=== PATIENT | male | born 1975 | race Caucasian/White ===

== ENCOUNTER 2016-06-14 06:03 | Day surgery (SDC) | payer MEDICARE, MEDICAID ==
[~2016-06-14] VITALS: Ht 172.7 cm; Wt 120.0 kg
[2016-06-14] MEDS ORDERED: SODIUM CHLORIDE 0.9% 1,000 ML IV SCH (07:32)
[2016-06-14 07:33] VITALS: BP 110/70
[2016-06-14] MEDS ORDERED: SEVE800T PO (07:37)
[2016-06-14] MEDS ORDERED: METO50TA82 PO (07:37)
[2016-06-14] MEDS ORDERED: PRED10TA PO (07:37)
[2016-06-14] MEDS ORDERED: SODI325T PO (07:37)
[2016-06-14] MEDS ORDERED: AMLO10TA2 PO (07:37)
[2016-06-14] MEDS ORDERED: LANT500T PO (07:37)
[2016-06-14 08:06] LABS: HEMOGLOBIN 14.8 g/dL (13.7-18.0)
[2016-06-14 08:11] LABS: BLOOD UREA NITROGEN 32 mg/dL (7-18)
[2016-06-14] MEDS ORDERED: PROTAMINE SULFATE 10 MG/ML, 25ML ONE (08:17)
[2016-06-14] MEDS ORDERED: NALOXONE 1 MG/ML, 2ML ONE (08:17)
[2016-06-14] MEDS ORDERED: FLUMAZENIL 0.1 MG/1 ML, 5ML ONE (08:17)
[2016-06-14] MEDS ORDERED: MIDAZOLAM 1 MG/ML, 5ML ONE (08:17)
[2016-06-14] MEDS ORDERED: FENTANYL PF 100 MCG/2ML ONE (08:17)
[2016-06-14] MEDS ORDERED: LIDOCAINE 2%, 20ML ONE (08:21)
[2016-06-14 08:55] LABS: ANISOCYTOSIS 1+
[2016-06-14 09:00] LABS: POLYCHROMASIA 1+
[2016-06-14] MEDS ORDERED: VISIPAQUE 270 MG/ML, 50ML BOTTLE ONE (09:49)
== END 2016-06-14 11:50 | disposition home or self-care (01) ==
LOC: OUT 06:03
PROVIDERS: ATTEND Surgery Vascular Surgery
DX: T82.858A Stenosis of other vascular prosthetic devices, implants and grafts, initial encounter (principal); I12.0 Hypertensive chronic kidney disease with stage 5 chronic kidney disease or end stage renal disease; N18.6 End stage renal disease; Z99.2 Dependence on renal dialysis; Z82.49 Family history of ischemic heart disease and other diseases of the circulatory system; Y83.2 Surgical operation with anastomosis, bypass or graft as the cause of abnormal reaction of the patient, or of later complication, without mention of misadventure at the time of the procedure
CPT/HCPCS: 36415; 36902; 76937; 80048; 85025; C1725; C1751; C1769; C1894; J2250; J3010; J3490; J7030; Q9966; 36147; J2720; J2310

== ENCOUNTER 2017-03-26 13:09 | Day surgery (SDC) | payer MEDICAID, MEDICARE ==
[~2017-03-26] VITALS: Ht 170.2 cm; Wt 123.0 kg
[~2017-03-26 13:09] MED LIST: AMLO10TA2 PO; LANT500T PO; METO50TA82 PO; PRED10TA PO; SEVE800T7 PO; SODI325T PO
[2017-03-26] MEDS ORDERED: SODIUM CHLORIDE 0.9% 1,000 ML IV SCH (13:35)
[2017-03-26 13:57] VITALS: BP 130/86
[2017-03-26] MEDS ORDERED: D5%-0.45% NACL 1,000 ML IV SCH (13:59)
[2017-03-26] MEDS ORDERED: PLEASE ENTER HEIGHT AND WEIGHT MC SCH (14:00)
[2017-03-26 14:36] LABS: HEMATOCRIT 52.6 % (39.2-51.8); HEMOGLOBIN 17.4 g/dL (13.7-18.0); WHITE BLOOD COUNT 9.1 x10^3/uL (3.4-10)
[2017-03-26 14:45] LABS: BLOOD UREA NITROGEN 52 mg/dL (7-18)
[2017-03-26 14:49] LABS: ASPARTATE AMINO TRANSFERASE 24 U/L (15-37)
[2017-03-26] MEDS ORDERED: NALOXONE 1 MG/ML, 2ML ONE (15:01)
[2017-03-26] MEDS ORDERED: FENTANYL PF 100 MCG/2ML ONE ×2 (15:01)
[2017-03-26] MEDS ORDERED: HEPARIN 1,000 UNITS/ML, 10ML ONE (15:01)
[2017-03-26] MEDS ORDERED: PROTAMINE SULFATE 10 MG/ML, 25ML ONE (15:01)
[2017-03-26] MEDS ORDERED: LIDOCAINE 2%, 20ML ONE (15:23)
== END 2017-03-26 17:46 | disposition home or self-care (01) ==
LOC: OUT 13:09
PROVIDERS: ATTEND Surgery
DX: T82.590A Other mechanical complication of surgically created arteriovenous fistula, initial encounter (principal); N18.9 Chronic kidney disease, unspecified; I12.9 Hypertensive chronic kidney disease with stage 1 through stage 4 chronic kidney disease, or unspecified chronic kidney disease; Y83.8 Other surgical procedures as the cause of abnormal reaction of the patient, or of later complication, without mention of misadventure at the time of the procedure; Y92.89 Other specified places as the place of occurrence of the external cause
CPT/HCPCS: 36415; 36902; 36909; 80053; 85025; 99156; 99157; C1725; C1751; C1769; C1773; C1894; J3010; J3490; J1644; J2720; J2310

== ENCOUNTER 2018-02-24 07:30 | Day surgery (SDC) | payer MEDICARE ==
[~2018-02-24] VITALS: Ht 167.6 cm; Wt 114.8 kg
[~2018-02-24 07:30] MED LIST changes: -AMLO10TA2 PO; +AMLO10TA6 PO; +LIDOCAINE-MPF 1%, 5ML ONE
[2018-02-24] MEDS ORDERED: D5%-0.45% NACL 1,000 ML IV SCH (07:50)
[2018-02-24] MEDS ORDERED: DULO20CA45 PO (07:53)
[2018-02-24 07:54] VITALS: BP 152/94
[2018-02-24 08:24] LABS: BASOPHILS # (AUTO) 0.03 x10^3/uL (0-0.1); BASOPHILS % (AUTO) 1 % (0-1); EOSINOPHILS # (AUTO) 0.16 x10^3/uL (0-0.4); EOSINOPHILS % (AUTO) 2 % (1-7); LYMPHOCYTES % (AUTO) 26 % (22-44); MD NO; MEAN CORPUSCULAR HEMOGLOBIN 31.2 pg (27.5-34.5); MEAN CORPUSCULAR VOLUME 94.5 fL (81-97); MEAN PLATELET VOLUME 7.1 fL (7.4-10.4); MONOCYTES % (AUTO) 8 % (2-9); NEUTROPHILS # (AUTO) 4.71 x10^3/uL (1.8-6.8); NEUTROPHILS % (AUTO) 64 % (42-75); PLATELET COUNT 162 x10^3/uL (130-400); RED BLOOD COUNT 5.51 x10^6/uL (4.38-5.82); RED CELL DISTRIBUTION WIDTH 17.8 % (9.4-14.8)
[2018-02-24 08:36] LABS: ANION GAP 15 mmol/L (5-15); CALCIUM 8.5 mg/dL (8.5-10.1); CHLORIDE 95 mmol/L (98-107)
[2018-02-24] MEDS ORDERED: FENTANYL PF 100 MCG/2ML ONE ×2 (09:27→09:28)
[2018-02-24] MEDS ORDERED: NALOXONE 1 MG/ML, 2ML ONE (09:28)
[2018-02-24] MEDS ORDERED: HEPARIN 1,000 UNITS/ML, 10ML ONE (09:28)
[2018-02-24] MEDS ORDERED: PROTAMINE SULFATE 10 MG/ML, 25ML ONE (09:28)
[2018-02-24] MEDS ORDERED: FLUMAZENIL 0.1 MG/1 ML, 5ML ONE (09:28)
[2018-02-24] MEDS ORDERED: MIDAZOLAM 1 MG/ML, 5ML ONE ×2 (09:28)
[2018-02-24] MEDS ORDERED: NITROGLYCERIN 5 MG/ML, 10ML ONE (09:28)
[2018-02-24] MEDS ORDERED: SODIUM CHLORIDE 0.9% 1,000 ML IV SCH (10:55)
[2018-02-24] MEDS ORDERED: ONDANSETRON 2MG/ML, 2ML IV PRN (11:00)
[2018-02-24] MEDS ORDERED: VISIPAQUE 270 MG/ML, 50ML BOTTLE ONE (11:20)
== END 2018-02-24 11:52 | disposition home or self-care (01) ==
LOC: OUT 07:30 → UNDOADMOB 10:55 → ORIP 10:55 → OUT 11:52
PROVIDERS: ATTEND Surgery
DX: T82.590A Other mechanical complication of surgically created arteriovenous fistula, initial encounter (principal); I12.0 Hypertensive chronic kidney disease with stage 5 chronic kidney disease or end stage renal disease; N18.6 End stage renal disease; D64.9 Anemia, unspecified; Z98.890 Other specified postprocedural states; Y83.8 Other surgical procedures as the cause of abnormal reaction of the patient, or of later complication, without mention of misadventure at the time of the procedure; Y92.89 Other specified places as the place of occurrence of the external cause
CPT/HCPCS: 36415; 36902; 80048; 85025; 99156; 99157; C1725; C1751; C1769; C1894; J2250; J3010; Q9966; J1644; J2720; J2310

== ENCOUNTER 2018-06-27 07:55 | Outpatient (CLI) | payer MEDICARE ==
[~2018-06-27] VITALS: Ht 167.6 cm; Wt 114.7 kg
[~2018-06-27 07:55] MED LIST changes: -AMLO10TA6 PO; +AMLO10TA8 PO; +DULO20CA45 PO; -LIDOCAINE-MPF 1%, 5ML ONE
[2018-06-27 08:39] VITALS: BP 142/92
[2018-06-27] MEDS ORDERED: SODIUM CHLORIDE 0.9% 1,000 ML IV SCH (08:44)
[2018-06-27] MEDS ORDERED: LOSARTAN PO (09:12)
[2018-06-27] MEDS ORDERED: CINA90TA PO (09:14)
[2018-06-27] MEDS ORDERED: CINA60TA PO (09:14)
[2018-06-27 09:27] LABS: BASOPHILS # (AUTO) 0.04 x10^3/uL (0-0.1); BASOPHILS % (AUTO) 1 % (0-1); EOSINOPHILS # (AUTO) 0.26 x10^3/uL (0-0.4); EOSINOPHILS % (AUTO) 3 % (1-7); LYMPHOCYTES # (AUTO) 2.35 x10^3/uL (1-3.4); LYMPHOCYTES % (AUTO) 25 % (22-44); MD NO; MEAN CORPUSCULAR HEMOGLOBIN 33.2 pg (27.5-34.5); MEAN CORPUSCULAR HGB CONC 33.2 g/dL (33.2-36.2); MEAN PLATELET VOLUME 7.2 fL (7.4-10.4); MONOCYTES % (AUTO) 10 % (2-9); NEUTROPHILS # (AUTO) 5.83 x10^3/uL (1.8-6.8); NEUTROPHILS % (AUTO) 62 % (42-75); PLATELET COUNT 170 x10^3/uL (130-400); RED BLOOD COUNT 5.04 x10^6/uL (4.38-5.82)
[2018-06-27 09:37] LABS: ALANINE AMINOTRANSFERASE 21 U/L (12-78); ALBUMIN 3.7 g/dL (3.4-5.0); ANION GAP 12 mmol/L (5-15); CHLORIDE 97 mmol/L (98-107)
[2018-06-27 09:52] LABS: ALKALINE PHOSPHATASE 78 U/L (45-117); BILIRUBIN,TOTAL 0.6 mg/dL (0.2-1.0); CALCIUM 8.1 mg/dL (8.5-10.1); TOTAL PROTEIN 7.6 g/dL (6.4-8.2)
== END 2018-06-27 23:59 | disposition home or self-care (01) ==
LOC: CLISVCS 07:55 → OUT 07:55 → EDSTATUS 10:30 → CLISVCS 23:59
PROVIDERS: ATTEND Surgery
DX: N18.6 End stage renal disease (principal); Z53.9 Procedure and treatment not carried out, unspecified reason; I12.0 Hypertensive chronic kidney disease with stage 5 chronic kidney disease or end stage renal disease; D63.1 Anemia in chronic kidney disease; Z99.2 Dependence on renal dialysis
CPT/HCPCS: 36415; 80053; 85025; 85730; 93005

== ENCOUNTER 2018-08-15 11:42 | Observation (INO) | payer MEDICARE, OTHER ==
[~2018-08-15] VITALS: Ht 167.6 cm; Wt 116.0 kg
[~2018-08-15 11:42] MED LIST changes: +CINA60TA PO; +CINA90TA PO; +LOSARTAN PO
[2018-08-15 13:31] VITALS: BP 135/89
[2018-08-15] MEDS ORDERED: LACTATED RINGERS 1,000 ML IV SCH (13:37)
[2018-08-15 14:10] LABS: ANION GAP 14 mmol/L (5-15); CALCIUM 7.5 mg/dL (8.5-10.1); CHLORIDE 102 mmol/L (98-107)
[2018-08-15] MEDS ORDERED: FENTANYL PF 250 MCG/5ML ONE (15:16)
[2018-08-15] MEDS ORDERED: MIDAZOLAM 1 MG/ML, 2ML ONE (15:16)
[2018-08-15] MEDS ORDERED: ROCURONIUM 10MG/ML,5ML ONE (15:21)
[2018-08-15] MEDS ORDERED: CEFAZOLIN 1,000 MG ONE (15:21)
[2018-08-15] MEDS ORDERED: NEOSTIGMINE 1 MG/ML, 10ML ONE (15:21)
[2018-08-15] MEDS ORDERED: PROPOFOL 10 MG/ML, 20ML ONE (15:21)
[2018-08-15] MEDS ORDERED: GLYCOPYRROLATE 0.2MG/1ML, 5ML ONE (15:21)
[2018-08-15] MEDS ORDERED: THROMBIN 20,000 UNIT VIAL TP ONE (16:55)
[2018-08-15] MEDS ORDERED: BUPIVACAINE/PF-EPI 0.5% 1:200K ONE (16:55)
[2018-08-15] MEDS ORDERED: PROTAMINE SULFATE 10 MG/ML, 5ML ONE (16:55)
[2018-08-15] MEDS ORDERED: HEPARIN 1,000 UNITS/ML, 10ML ONE (16:55)
[2018-08-15] MEDS ORDERED: hydrALAzine 20 MG/ML, 1ML IV PRN (17:00)
[2018-08-15] MEDS ORDERED: PROMETHAZINE 12.5 MG SUPP PR PRN (17:00)
[2018-08-15] MEDS ORDERED: ONDANSETRON ODT 8 MG PO PRN (17:00)
[2018-08-15] MEDS ORDERED: HYDROmorphone 2 MG/ML, 1ML IVPush PRN (17:00)
[2018-08-15] MEDS ORDERED: LABETALOL 5MG/ML, 20ML IV PRN (17:00)
[2018-08-15] MEDS ORDERED: OXYcodone 5 MG/5 ML ORAL.SOL UDC PO PRN (17:00)
[2018-08-15] MEDS ORDERED: ONDANSETRON 2MG/ML, 2ML IV PRN (17:00)
[2018-08-15] MEDS ORDERED: PROMETHAZINE 25 MG SUPP PR PRN (17:00)
[2018-08-15] MEDS ORDERED: FENTANYL PF 100 MCG/2ML IV PRN (17:00)
[2018-08-15] MEDS ORDERED: PROMETHAZINE 25 MG/ML, 1ML IV PRN (17:00)
[2018-08-15] MEDS ORDERED: PROMETHAZINE 25 MG/ML, 1ML IM PRN ×2 (17:00)
== END 2018-08-15 21:10 | disposition home or self-care (01) ==
LOC: OUT 11:42 → ORIP 18:34 → 4NOR 20:32
PROVIDERS: ADMIT Surgery; ATTEND Surgery
DX: I12.0 Hypertensive chronic kidney disease with stage 5 chronic kidney disease or end stage renal disease (principal); Z99.2 Dependence on renal dialysis; N18.5 Chronic kidney disease, stage 5; D63.1 Anemia in chronic kidney disease; Z79.899 Other long term (current) drug therapy
CPT/HCPCS: 36415; 36821; 80048; G0378; J0690; J1644; J2250; J2704; J2710; J3010; J2720

== ENCOUNTER → 2019-02-02 | Day surgery (SDC) | payer MEDICARE ==
[~2019-02-02] MED LIST changes: +DIAZEPAM 5 MG TABLET ONE; +DIAZEPAM 5 MG TABLET PO ONE; +LIDOCAINE-MPF 1%, 2ML INFIL ONE; +PLEASE ENTER HEIGHT AND WEIGHT MC SCH; +SODIUM CHLORIDE 0.9% 1,000 ML IV SCH
[2019-02-02 09:21] LABS: BASOPHILS # (AUTO) 0.05 x10^3/uL (0-0.1); BASOPHILS % (AUTO) 1 % (0-1); EOSINOPHILS % (AUTO) 3 % (1-7); LYMPHOCYTES # (AUTO) 2.14 x10^3/uL (1-3.4); LYMPHOCYTES % (AUTO) 29 % (22-44); MD NO; MEAN CORPUSCULAR HEMOGLOBIN 28.2 pg (27.5-34.5); MEAN CORPUSCULAR HGB CONC 31.8 g/dL (33.2-36.2); MEAN CORPUSCULAR VOLUME 88.6 fL (81-97); MEAN PLATELET VOLUME 6.9 fL (7.4-10.4); MONOCYTES # (AUTO) 0.65 x10^3/uL (0.2-0.8); MONOCYTES % (AUTO) 9 % (2-9); NEUTROPHILS # (AUTO) 4.27 x10^3/uL (1.8-6.8); NEUTROPHILS % (AUTO) 59 % (42-75); PLATELET COUNT 194 x10^3/uL (130-400); RED BLOOD COUNT 4.53 x10^6/uL (4.38-5.82); RED CELL DISTRIBUTION WIDTH 20.4 % (9.4-14.8)
[2019-02-02 09:31] LABS: ALANINE AMINOTRANSFERASE 17 U/L (12-78); ALBUMIN 3.6 g/dL (3.4-5.0); ANION GAP 13 mmol/L (5-15); CALCIUM 7.2 mg/dL (8.5-10.1); CHLORIDE 100 mmol/L (98-107)
[2019-02-02 09:34] LABS: ALKALINE PHOSPHATASE 90 U/L (45-117); BILIRUBIN,TOTAL 0.5 mg/dL (0.2-1.0); TOTAL PROTEIN 7.5 g/dL (6.4-8.2)
== END | disposition home or self-care (01) ==
LOC: OUT 07:25 → MERGE 09:30
PROVIDERS: ATTEND Surgery
DX: I12.0 Hypertensive chronic kidney disease with stage 5 chronic kidney disease or end stage renal disease (principal); Z53.8 Procedure and treatment not carried out for other reasons; N18.6 End stage renal disease; E66.9 Obesity, unspecified; Z79.899 Other long term (current) drug therapy; Z94.0 Kidney transplant status; Z99.2 Dependence on renal dialysis; Z98.890 Other specified postprocedural states
CPT/HCPCS: 36415; 80053; 85025

== ENCOUNTER 2019-04-03 10:46 | Observation (INO) | payer MEDICARE ==
[~2019-04-03] VITALS: Ht 167.6 cm; Wt 119.7 kg
[~2019-04-03 10:46] MED LIST changes: +BUPIVACAINE/PF 0.5% ONE; -DIAZEPAM 5 MG TABLET ONE; -DIAZEPAM 5 MG TABLET PO ONE; +EPINEPHRINE 1 MG/ML, 1ML ONE; +HEPARIN 1,000 UNITS/ML, 10ML ONE; -LIDOCAINE-MPF 1%, 2ML INFIL ONE; +PAPAVERINE 30 MG/ML, 2ML ONE; -PLEASE ENTER HEIGHT AND WEIGHT MC SCH; +PROTAMINE SULFATE 10 MG/ML, 5ML ONE; -SODIUM CHLORIDE 0.9% 1,000 ML IV SCH; +THROMBIN (RECOMBINANT) 5,000 UNIT VIAL TP ONE
[2019-04-03 11:23] VITALS: BP 155/96
[2019-04-03] MEDS ORDERED: SODIUM CHLORIDE 0.9% 1,000 ML IV SCH (11:28)
[2019-04-03] MEDS ORDERED: WARF10TA PO (12:00)
[2019-04-03 12:15] LABS: ALANINE AMINOTRANSFERASE 21 U/L (12-78); ALBUMIN 3.8 g/dL (3.4-5.0); ANION GAP 7 mmol/L (5-15); CALCIUM 8.7 mg/dL (8.5-10.1); CHLORIDE 99 mmol/L (98-107); CREATININE 8.08 mg/dL (0.7-1.3)
[2019-04-03 12:18] LABS: ALKALINE PHOSPHATASE 73 U/L (45-117); BILIRUBIN,TOTAL 0.6 mg/dL (0.2-1.0); TOTAL PROTEIN 7.7 g/dL (6.4-8.2)
[2019-04-03 12:24] LABS: INTERNATIONAL NORMALIZED RATIO 1.08 (0.93-1.1); PROTHROMBIN TIME 11.3 Seconds (9.6-11.5)
[2019-04-03] MEDS ORDERED: PROPOFOL 10 MG/ML, 20ML ONE (13:02)
[2019-04-03] MEDS ORDERED: SUCCINYLCHOLINE 20 MG/ML, 10ML ONE (13:02)
[2019-04-03] MEDS ORDERED: ROCURONIUM 10MG/ML,5ML ONE (13:03)
[2019-04-03] MEDS ORDERED: MIDAZOLAM 1 MG/ML, 2ML ONE (13:04)
[2019-04-03] MEDS ORDERED: FENTANYL PF 250 MCG/5ML ONE (13:05)
[2019-04-03] MEDS ORDERED: HYDROmorphone 2 MG/ML, 1ML IVPush PRN (13:30)
[2019-04-03] MEDS ORDERED: FENTANYL PF 100 MCG/2ML IV PRN (13:30)
[2019-04-03] MEDS ORDERED: OXYcodone 5 MG/5 ML ORAL.SOL UDC PO PRN (13:30)
[2019-04-03] MEDS ORDERED: hydrALAzine 20 MG/ML, 1ML IV PRN (13:30)
[2019-04-03] MEDS ORDERED: ONDANSETRON 2MG/ML, 2ML IV PRN (13:30)
[2019-04-03] MEDS ORDERED: LABETALOL 5MG/ML, 20ML IV PRN (13:30)
[2019-04-03] MEDS ORDERED: PROMETHAZINE 25 MG/ML, 1ML IV PRN (13:30)
[2019-04-03] MEDS ORDERED: ONDANSETRON 2MG/ML, 2ML ONE (14:36)
[2019-04-03] MEDS ORDERED: DEXAMETHASONE 4 MG/ML, 1ML ONE (14:43)
[2019-04-03] MEDS ORDERED: CEFAZOLIN 1,000 MG ONE ×2 (14:46)
[2019-04-03] MEDS ORDERED: OXYcodone 5 MG/5 ML ORAL.SOL UDC ONE (17:14)
[2019-04-03] MEDS ORDERED: FENTANYL PF 100 MCG/2ML ONE (17:14)
[2019-04-03] MEDS ORDERED: SODIUM CHLORIDE FLUSH 10ML SYR IVF SCH (21:00)
== END 2019-04-03 18:45 | disposition home or self-care (01) ==
LOC: OUT 10:46 → ORIP 16:59 → 4NE 18:11
PROVIDERS: ADMIT Surgery; ATTEND Surgery
DX: I12.0 Hypertensive chronic kidney disease with stage 5 chronic kidney disease or end stage renal disease (principal); N18.6 End stage renal disease; T82.590A Other mechanical complication of surgically created arteriovenous fistula, initial encounter; D63.1 Anemia in chronic kidney disease; Z99.2 Dependence on renal dialysis; Y71.2 Prosthetic and other implants, materials and accessory cardiovascular devices associated with adverse incidents
CPT/HCPCS: 36415; 36818; 71045; 80053; 85610; 85730; 93005; G0378; J0171; J0330; J0690; J1100; J1644; J2250; J2405; J2440; J2704; J2720; J3010; S0020